=== PATIENT | male | born 1980 | race Caucasian/White ===

== ENCOUNTER 2017-05-25 01:14 | Emergency (ER) | payer OTHER ==
[~2017-05-25] VITALS: Ht 182.9 cm; Wt 98.2 kg
[2017-05-25 01:24] VITALS: TEMP 36.7; Ht 182.9 cm; Wt 98.2 kg
[2017-05-25] MEDS ORDERED: IBUPROFEN 600 MG TAB PO STA (01:42)
[2017-05-25 03:10] VITALS: BP 122/79; PULSE 88; O2SAT 96
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
== END 2017-05-25 03:09 | disposition home or self-care (01) ==
LOC: C.EDB 01:17 → EDBD 01:17 → C.EDC 03:09
DX: S63.502A Unspecified sprain of left wrist, initial encounter (principal); V49.40XA Driver injured in collision with unspecified motor vehicles in traffic accident, initial encounter